=== PATIENT | male | born 1990 | race Hispanic/Latino ===

== ENCOUNTER → 2016-06-15 | Outpatient (CLI) | payer OTHER, SELFPAY ==
--- NOTE | 2016-06-16 08:31 | MRI ---
Study: MRI of the Left Knee. Indication: KNEE PAIN Technique: Multiplanar, multi sequence MRI of the left knee was obtained without intravenous contrast. Comparison: None Findings: ACL, PCL, MCL, and lateral collateral ligament complex intact. Mild degenerative signal posterior horn medial meniscus without tear. Lateral meniscus intact. Minimal subchondral marrow edema anteromedial margin medial tibial plateau indicating occult overlying grade 4 chondral loss. No high-grade chondral defect lateral compartment. Insertional quadriceps tendinosis without tear. Patellar tendon intact. Patella normally located. No high-grade chondral defect patellofemoral compartment. Small knee effusion. Minimal thickening medial patellar plica. Impression: Mild degenerative signal change posterior horn medial meniscus without tear defect. Mild subchondral marrow change anteromedial margin medial tibial plateau with suspected occult overlying grade 4 chondral loss. Small knee effusion. Minimal thickening medial patellar plica. Insertional quadriceps tendinosis. Electronically signed by: John Allan MD 06/16/2016 08:29
== END ==
LOC: MRI 14:15
PROVIDERS: ATTEND Family Medicine
DX: M25.562 Pain in left knee (principal); M25.462 Effusion, left knee

== ENCOUNTER → 2016-07-04 | Outpatient (CLI) | payer OTHER, SELFPAY ==
--- NOTE | 2016-07-04 08:55 | RAD ---
EXAM DESCRIPTION: Left knee three views CLINICAL HISTORY: 25 y/o ,M, KNEE PAIN COMPARISON: None. IMPRESSION: Small joint effusion. Normal patellofemoral alignment. Small density medial tibial plateau possibly a small bone island. No additional abnormality identified. Electronically signed by: Walt Mejia MD 07/04/2016 08:53
--- NOTE | 2016-07-04 09:11 | RAD ---
EXAM DESCRIPTION: Pelvis one-view CLINICAL HISTORY: 25 y/o ,M, HIP PAIN COMPARISON: None. IMPRESSION: Several sclerotic foci are noted probably small bone islands left acetabulum superiorly and left femoral neck. Similar to the focus in the left medial tibial plateau. No acute process. No evidence of sacroiliitis. No advanced arthrosis in the hips. Small ossicles along the superior acetabuli which can be associated with femoroacetabular impingement bilateral hips. Electronically signed by: Walt Mejia MD 07/04/2016 09:09
== END | disposition home or self-care (01) ==
LOC: RAD 07:47
PROVIDERS: ATTEND Orthopaedic Surgery
DX: M25.562 Pain in left knee (principal); M25.552 Pain in left hip

== ENCOUNTER → 2019-07-10 | Outpatient (CLI) | payer OTHER ==
--- NOTE | 2019-07-10 14:06 | RAD ---
EXAM DESCRIPTION: Left wrist, 3 radiographs CLINICAL HISTORY: PAIN IN LEFT WRIST FINDINGS/ IMPRESSION: Overlying casting obscures bony detail Fracture of the distal radius, transversely oriented across the epiphysis extending to the distal articular surface at the junction of the scaphoid and lunate fossa. Mild cortical offset. Tiny avulsion fracture at the tip of the ulnar styloid No carpal or metacarpal fracture Electronically signed by: Michael Goldsmith MD 07/10/2019 2:05 PM [facility]
== END ==
LOC: RAD 08:50
PROVIDERS: ATTEND Orthopaedic Surgery
DX: S52.502A Unspecified fracture of the lower end of left radius, initial encounter for closed fracture (principal); S52.612A Displaced fracture of left ulna styloid process, initial encounter for closed fracture

== ENCOUNTER → 2019-08-15 | Outpatient (CLI) | payer OTHER ==
--- NOTE | 2019-08-15 08:31 | RAD ---
EXAM DESCRIPTION: Wrist,Left 3 Views CLINICAL HISTORY: fx of distal end of LT radius COMPARISON: 18 July 2019 TECHNIQUE: 3 views left FINDINGS: Radial and ulnar styloid fractures are again observed. There is some sclerosis at the radial styloid fracture site suggesting early evidence of healing. No solid union is yet evident. The ulnar injury remains unchanged. IMPRESSION: The radial fracture demonstrates evidence suggesting early healing. Electronically signed by: Jered Hernandez MD 08/15/2019 8:30 AM CDT
== END ==
LOC: RAD 08:05
PROVIDERS: ATTEND Orthopaedic Surgery
DX: S52.502D Unspecified fracture of the lower end of left radius, subsequent encounter for closed fracture with routine healing (principal)

== ENCOUNTER → 2019-09-12 | Outpatient (CLI) | payer OTHER ==
--- NOTE | 2019-09-12 09:11 | RAD ---
EXAM DESCRIPTION: Wrist,Left 3 Views CLINICAL HISTORY: FRACTURE OF DISTAL END OF RADIUS LEFT COMPARISON: August 15, 2019 IMPRESSION: 3 views of the left wrist again demonstrates radial and ulnar styloid fractures with some sclerosis along the radial styloid fracture margins unchanged from previous consistent with partial healing. Is not appear to be significant interval change. The ulnar styloid avulsion fracture is also unchanged from previous exam. Electronically signed by: Cole Sandoval MD 09/12/2019 9:09 AM CDT
== END ==
LOC: RAD 07:37
PROVIDERS: ATTEND Orthopaedic Surgery
DX: S52.512D Displaced fracture of left radial styloid process, subsequent encounter for closed fracture with routine healing (principal); S52.612D Displaced fracture of left ulna styloid process, subsequent encounter for closed fracture with routine healing